=== PATIENT | male | born 1980 | race Two or more races ===

== ENCOUNTER 2018-03-13 08:35 | Emergency (ER) | payer MEDICAID ==
[~2018-03-13] VITALS: Ht 165.1 cm; Wt 88.7 kg
[2018-03-13 08:45] VITALS: Ht 165.1 cm; Wt 88.7 kg
[2018-03-13 09:25] LABS: microscopic required? NO
[2018-03-13 09:51] LABS: UA SPECIFIC GRAVITY 1.025 (1.005-1.035); urine erythrocyte NEGATIVE (NEGATIVE)
[2018-03-13 09:53] LABS: BASOPHIL % 0.3 % (0-2); PLATELET COUNT 139 x10^3mcL (130-400); RED CELL DISTRIBUTION WIDTH 13.5 % (11.5-14.5)
[2018-03-13 10:11] LABS: CALCIUM 7.9 mg/dL (8.5-10.1); CARBON DIOXIDE 25.9 mmol/L (21-32); CHLORIDE SERUM 102 mmol/L (98-107); CREATININE SERUM 0.9 mg/dL (0.7-1.3); GFR1 > 60 mL/min; GLUCOSE SERUM 89 mg/dL (74-106); POTASSIUM SERUM 3.5 mmol/L (3.5-5.1); SODIUM SERUM 135 mmol/L (136-145)
[2018-03-13 10:23] LABS: ALKALINE PHOSPHATASE 60 U/L (46-116); ALT/SGPT 59 U/L (16-63); AST/SGOT 35 U/L (15-37); BILIRUBIN TOTAL 0.2 mg/dL (0.20-1.00); TOTAL PROTEIN, SERUM 7.1 g/dL (6.4-8.2)
[2018-03-13 11:51] VITALS: BP 120/71
== END 2018-03-13 11:51 | disposition home or self-care (01) ==
LOC: ED 08:35
PROVIDERS: Emergency Medicine
DX: B34.9 Viral infection, unspecified (principal); M54.5 Low back pain; M25.612 Stiffness of left shoulder, not elsewhere classified; Z88.8 Allergy status to other drugs, medicaments and biological substances
CPT/HCPCS: 87804; J1885; J7030; Q0092